=== PATIENT | female | born 1965 | race American Indian/Alaskan Native ===

== ENCOUNTER 2019-10-05 09:36 | Day surgery (SDC) | payer BC ==
[~2019-10-05 09:36] MED LIST: SODIUM CHLORIDE 0.9% 1000 ML 1,000 ML IV SCH
[2019-10-05] MEDS ORDERED: SODIUM CHLORIDE 0.9% 1000 ML 1,000 ML ONE (11:35)
--- NOTE | 2019-10-05 12:44 | Anesthesia Consultation ---
Anesthesia Consult and Med Hx Date of service: 10/05/19 - Airway Anesthetic Teeth Evaluation: Good ROM Head & Neck: Adequate Mental/Hyoid Distance: Adequate Mallampati Class: Class III Intubation Access Assessment: Possibly Difficult - Pulmonary Exam CTA: Yes - Cardiac Exam Cardiac Exam: RRR - Pre-Operative Health Status ASA Pre-Surgery Classification: ASA3 Proposed Anesthetic Plan: MAC - Pre-Anesthesia Comment Pre-Anesthesia Comments: Discussed risks/benefits of sedation. Patient would like to attempt procedure without sedation. Informed endoscopist who will speak with patient prior to procedure. Anesthesia will be available on stand by to assist with sedation should to patient be unable to tolerate otherwise. - Pulmonary Hx Respiratory Symptoms: Yes (intermittent cough chronic for many months; pulm work up ongoing) SOB: No Home Oxygen Therapy: No - Cardiovascular System Hx Hypertension: Yes (took antihypertensives this morning) Hx Heart Attack/AMI: No - Central Nervous System CVA: Yes (questionable hx TIA several years ago) - Endocrine Hx Renal Disease: No Hx Liver Disease: No Hx Non-Insulin Dependent Diabetes: Yes Hx Thyroid Disease: No - Other Systems Hx Obesity: Yes (BMI 36) - Additional Comments Anesthesia Medical History Comments: No hx anesthetic complications.
--- NOTE | 2019-10-05 12:44 | Anesthesia Day of Surgery ---
Anesthesia Day of Surgery - Day of Surgery Patient Examined: Yes Patient H&P Reviewed: Yes Patient is NPO: Yes
[2019-10-05] MEDS ORDERED: LIDOCAINE (1%) 10 MG/1 ML VIAL 20 ML MDV ONE (13:21)
[2019-10-05] MEDS ORDERED: MIDAZOLAM 2 MG/2 ML INJ ONE (13:27)
[2019-10-05] MEDS ORDERED: propofoL 200 MG/20 ML VIAL IV ONE ×2 (13:27)
--- NOTE | 2019-10-05 13:57 | Procedure Note ---
Date of procedure: 10/05/19 Pre-op diagnosis: Anemia/F/H/O Cancer/ Colon Polyp Screening Post-op diagnosis: other (Mild to Moderate, Distal Erosive Esophagitis/Gastritis/R/O Celiac Disease/ Normal Colon Mucosa/ minor,Internal Hemorrhoid) Procedure: EGD with Biopsy and Colonoscopy Anesthesia: [facility] [place] Surgeon: DEONDRE CHÁVEZ Estimated blood loss: minimal Pathology: list Specimen disposition: to lab Condition: stable Disposition: same day (Treat with PPI. Avoid aspirin and NSAID for 4 days; otherwise resume home medication and follow up in 1 to 2 weeks ([phone]).)
--- NOTE | 2019-10-05 14:06 | Operative Report ---
PROCEDURE: EGD with biopsy. INDICATIONS: This is a 54-year-old -[place] female who was noted to have iron deficiency anemia. She does have a family history of cancer. The patient's grandmother had cancer. EGD was done to make sure there was not any significant upper GI pathology present that would account for the patient's anemia. The procedure was done after getting informed consent with MAC anesthesia. Instrument was passed through the hypopharynx into the esophagus, which showed a [id number] distal erosive esophagitis. Stomach showed gastritis. The duodenum in the first and second portion appeared normal. Biopsy was done from the second part to rule out for possible celiac disease. Additional biopsy was done from the gastric antrum, gastric body and angular incisura to rule out for H. pylori and atrophic gastritis. In addition, biopsy was done from the distal esophagus to assess for the severity of the erosive esophagitis. ASSESSMENT: Anemia, mild to moderate erosive esophagitis, gastritis, rule out celiac disease. No peptic ulcer disease noted. Patent pylorus. PLAN: To wait for the biopsy results, have the patient avoid aspirin and aspirin-related products for the next few days. Treat the patient with PPI and to do a colonoscopy for further assessment. The procedure was done in the GI lab with assistance of the GI lab team, which included RN, marva Park Terrell and with assistance of anesthesia. JOB# [id number] BRODERICK/ALFA
--- NOTE | 2019-10-05 14:37 | Operative Report ---
COLONOSCOPY INDICATIONS: This is a 54-year-old -[place] female who was having an EGD and a colonoscopy done as workup for iron-deficiency anemia. EGD showed presence of [id number]-[id number] distal erosive esophagitis, gastritis. Biopsy was done to rule out for possible celiac disease. No peptic ulcer disease was noted either within the gastric or the duodenal lumen. Colonoscopy was done to make sure there was not any significant lower GI pathology present. Procedure was done after getting informed consent with MAC anesthesia. Initial rectal exam was unremarkable. Instrument was passed through the rectum onto the cecum, which was identified with ileocecal valve and the appendiceal orifice. Visualization was fair to good. The cecum was examined on the retroverted view. No additional pathology was noted. Cecum, ascending colon, transverse colon, descending colon, and sigmoid showed normal mucosa. There were no evidence of any polyps, colitis or diverticular disease and the rectum showed minor internal hemorrhoid on the retroverted view. There was no bleeding associated with the procedure. No complications associated with the procedure. ASSESSMENT: Anemia, colon polyp screening, no colon polyps noted, no diverticular disease noted, family history of cancer. The patient's grandmother had cancer. Minor internal hemorrhoid. Plan is to treat the patient with PPI. Continue with present treatment and care. The patient may require a capsule endoscopy to assess for possible small bowel AVM, which will be done as an outpatient. The procedure was done in the GI lab with the assistance of the GI lab team, which included Heather BOJORQUEZ; Mark durham and with the assistance of anesthesia. JOB# [id number] BRODERICK/ALFA
--- NOTE | 2019-10-05 15:58 | Post Anesthesia Evaluation ---
- Post Anesthesia Evaluation Patient Participated: Yes Airway Patent: Yes Stable Respiratory Function: Yes Nausea/Vomiting: No Temp > 96.8F: Yes Pain Manageable: Yes Adequeate Hydration: Yes Anesthesia Complications: No
[2019-10-05 17:51] VITALS: BP 114/66
== END 2019-10-05 09:37 | disposition home or self-care (01) ==
LOC: GIO 09:36
DX: D50.9 Iron deficiency anemia, unspecified (principal); K20.9 Esophagitis, unspecified; K64.8 Other hemorrhoids; K31.89 Other diseases of stomach and duodenum; K29.50 Unspecified chronic gastritis without bleeding; B96.81 Helicobacter pylori [H. pylori] as the cause of diseases classified elsewhere; I11.0 Hypertensive heart disease with heart failure; I50.9 Heart failure, unspecified; E66.9 Obesity, unspecified; E11.9 Type 2 diabetes mellitus without complications; Z80.0 Family history of malignant neoplasm of digestive organs; Z79.899 Other long term (current) drug therapy; Z91.010 Allergy to peanuts; Z68.36 Body mass index [BMI] 36.0-36.9, adult; Z86.73 Personal history of transient ischemic attack (TIA), and cerebral infarction without residual deficits
CPT/HCPCS: 43239; 45378; 81025; 82962; 88305; 88342; J2250; J2704; J7030